=== PATIENT | female | born 2000 | race Hispanic/Latino ===

== ENCOUNTER 2022-06-10 09:35 | Inpatient (IN) | payer OTHER ==
[2022-06-10] MEDS ORDERED: Ibuprofen 800 MG TAB PO PRN (10:32)
[2022-06-10] MEDS ORDERED: HYDROcodone/Acetaminophen 5/325 mg Tablet PO PRN (10:32)
[2022-06-10] MEDS ORDERED: Promethazine HCl 25 MG/ML VIAL IM PRN (10:32)
[2022-06-10] MEDS ORDERED: Lidocaine 1% (PF) 30 ML VIAL SC PRN (10:32)
[2022-06-10] MEDS ORDERED: Ondansetron PF 4 MG/2 ML Vial IVP PRN (10:32)
[2022-06-10] MEDS ORDERED: hydrALAZINE 20 MG/ML VIAL SLOW IVP PRN (10:32)
[2022-06-10] MEDS ORDERED: NS w/ Oxytocin 30 units 500 ML IV SCH ×2 (10:45)
[2022-06-10] MEDS ORDERED: Lactated Ringer's 1,000 ML IV SCH ×2 (10:45)
[2022-06-10 10:55] VITALS: BMI 24.5
[2022-06-10 11:06] LABS: Hemoglobin 12.6 g/dL (12.0-15.5); Mean Corpuscular HGB CONC 35.9 g/dL (32.0-36.0); Mean Corpuscular Hemoglobin 33.3 pg (27.0-33.0); Mean Corpuscular Volume 92.9 fl (81.6-98.3); Platelet Count 225 10x3/uL (150-450); RBC Distribution Width 12.6 % (11.5-14.5); Red Blood Cell (RBC) Count 3.78 10x6/uL (3.90-5.03); White Blood Cell (WBC) Count 13.1 10x3/uL (3.5-10.5)
[2022-06-10 11:51] LABS: Syphilis Antibody Nonreactive (Nonreactive); Syphilis Antibody Index 0.05 S/CO (<1.00 Non-Reactive)
[2022-06-10 11:52] LABS: HBSAg Index 0.18 S/CO (0-0.99); Hep B Surf Ag Non-Reactive S/CO (NonReactive)
[2022-06-10] MEDS: Butorphanol Tartrate 1 MG/ML VIAL SLOW IVP PRN ×4 (13:10→19:10)
[2022-06-10 13:27] LABS: SARS-CoV-2 NAA Rapid Test Not Detected (NotDetected)
[2022-06-11] MEDS ORDERED: Lanolin Ointment 7 GM TUBE TOP PRN (00:51)
[2022-06-11] MEDS ORDERED: HYDROcodone/Acetaminophen 5/325 mg Tablet PO PRN (00:51)
[2022-06-11] MEDS ORDERED: Boostrix 0.5 ML (Tdap) VIAL (>/=7 yrs of age) IM ONE (00:51)
[2022-06-11] MEDS ORDERED: hydrALAZINE 20 MG/ML VIAL SLOW IVP PRN (00:51)
[2022-06-11] MEDS ORDERED: Milk Of Magnesia 30 ML UDCUP PO PRN (00:51)
[2022-06-11] MEDS ORDERED: Promethazine HCl 25 MG/ML VIAL IM PRN (00:51)
[2022-06-11] MEDS ORDERED: Bisacodyl 10 MG SUPP PR PRN (00:51)
[2022-06-11] MEDS ORDERED: Ondansetron PF 4 MG/2 ML Vial IVP PRN (00:51)
[2022-06-11] MEDS ORDERED: diphenhydrAMINE 25 MG CAP PO PRN (00:51)
[2022-06-11] MEDS: Ibuprofen 800 MG TAB PO SCH ×3 (05:44→21:16)
[2022-06-11] MEDS: Docusate 100 MG CAP PO SCH ×2 (07:43→21:16)
[2022-06-11] MEDS: Prenatal Vitamin 1 TAB PO SCH (07:43)
[2022-06-11] MEDS: Ferrous Sulfate 325 MG TAB PO SCH ×2 (07:45→14:44)
[2022-06-12] MEDS: Ibuprofen 800 MG TAB PO SCH ×3 (05:21→21:24)
[2022-06-12] MEDS: Ferrous Sulfate 325 MG TAB PO SCH ×2 (07:49→19:15)
[2022-06-12] MEDS: Docusate 100 MG CAP PO SCH ×2 (09:16→21:24)
[2022-06-12] MEDS: Prenatal Vitamin 1 TAB PO SCH (09:16)
[2022-06-13] MEDS: Ibuprofen 800 MG TAB PO SCH ×2 (05:15→14:35)
[2022-06-13 08:37] VITALS: BP 113/62; TEMP 97.9
[2022-06-13] MEDS: Docusate 100 MG CAP PO SCH (08:49)
[2022-06-13] MEDS: Prenatal Vitamin 1 TAB PO SCH (08:49)
[2022-06-13] MEDS: Ferrous Sulfate 325 MG TAB PO SCH ×2 (08:50→15:05)
== END 2022-06-13 16:05 | disposition home or self-care (01) | DRG 806 ==
LOC: CSHLD/OP 09:35 → CSHLD 19:47 → CSHPED 06-11 04:37
PROVIDERS: ADMIT Family Medicine; ATTEND Family Medicine
PROC: 10E0XZZ Delivery of Products of Conception, External Approach (ICD-10-PCS; principal; 2022-06-10)
PROC: 0UQG7ZZ Repair Vagina, Via Natural or Artificial Opening (ICD-10-PCS; 2022-06-10)
PROC: 0UQMXZZ Repair Vulva, External Approach (ICD-10-PCS; 2022-06-10)
DX: O42.02 Full-term premature rupture of membranes, onset of labor within 24 hours of rupture (principal); O71.4 Obstetric high vaginal laceration alone; Z37.0 Single live birth; Z3A.38 38 weeks gestation of pregnancy; Z20.822 Contact with and (suspected) exposure to COVID-19
CPT/HCPCS: 85027; 86780; 86850; 86900; 86901; 87340; 99285; J0595; J2001; J2590; U0002